=== PATIENT | male | born 1990 | race Caucasian/White ===

== ENCOUNTER 2018-06-14 14:16 | Emergency (ER) | payer MEDICAID ==
[~2018-06-14] VITALS: Ht 165.1 cm; Wt 58.4 kg
[~2018-06-14 14:16] MED LIST: CLIN300C85 PO
[2018-06-14 14:38] VITALS: BP 99/59
[2018-06-14] MEDS ORDERED: LIDOcaine 1% 30ml preserv. free vial IJ ONE (15:50)
[2018-06-14] MEDS ORDERED: HYDROcodone/acetaminophen 5mg/325mg tablet PO ONE (17:10)
[2018-06-14] MEDS ORDERED: SULF1TAB49 PO (17:12)
[2018-06-14] MEDS ORDERED: HYDR-3965 PO (17:12)
== END 2018-06-14 17:20 | disposition home or self-care (01) ==
LOC: ER 14:16
DX: L02.512 Cutaneous abscess of left hand (principal); F17.200 Nicotine dependence, unspecified, uncomplicated
CPT/HCPCS: 26010; 73130; 99284; J3490

== ENCOUNTER 2020-08-10 17:17 | Emergency (ER) | payer MEDICAID ==
[~2020-08-10] VITALS: Ht 165.1 cm; Wt 52.3 kg
[~2020-08-10 17:17] MED LIST changes: +CHLO473M3 PO; +CLIN-97 PO; -CLIN300C85 PO; +LIDOcaine 1% W/epiNEPHrine 1:100,000 20ml vial ONE
[2020-08-10] MEDS ORDERED: amox tr/potassium clavulanate 875/125mg TAB PO ONE (18:15)
[2020-08-10] MEDS ORDERED: ketorolac trometh inj. 60 MG/2 ML VIAL IM ONE (18:15)
[2020-08-10] MEDS ORDERED: bacitracin 15gm ointment TP ONE (18:15)
[2020-08-10] MEDS ORDERED: HYDROcodone/acetaminophen 5mg/325mg tablet PO ONE (18:15)
[2020-08-10] MEDS ORDERED: TETanus/Pertussis (Acell)/Diphther VAC/PF (Tdap-Adult) 0.5ml syringe IMVAC ONE (18:15)
[2020-08-10] MEDS ORDERED: ondansetron 4mg rapidly disintigrating tab PO ONE (18:15)
[2020-08-10] MEDS ORDERED: HYDR-3965 PO (20:19)
[2020-08-10] MEDS ORDERED: AMOX1TAB87 PO (20:19)
[2020-08-10 20:24] VITALS: BP 98/61
--- NOTE | 2020-08-10 20:24 | NUR ---
Animal bite reporting form sent to [facility]
== END 2020-08-10 21:01 | disposition home or self-care (01) ==
LOC: ER 17:17
DX: S41.112A Laceration without foreign body of left upper arm, initial encounter (principal); Z20.3 Contact with and (suspected) exposure to rabies; Z79.2 Long term (current) use of antibiotics; Z79.899 Other long term (current) drug therapy; W54.0XXA Bitten by dog, initial encounter; Y93.89 Activity, other specified; Y92.89 Other specified places as the place of occurrence of the external cause; Y99.8 Other external cause status
CPT/HCPCS: 12001; 73080; 90471; 90715; 96372; 99284; J1885